=== PATIENT | female | born 1975 | race Hispanic/Latino ===

== ENCOUNTER 2016-10-13 01:21 | Emergency (ER) | payer OTHER ==
[2016-10-13] MEDS ORDERED: Sodium Chloride 0.9% 1,000 ML IV STA (01:41)
[2016-10-13 02:10] LABS: BASO # 0.1 K/uL (0.0-0.2); BASO % 0.8 % (0.0-2.0); EOS # 0.1 K/uL (0.0-0.7); EOS % 0.9 % (0.0-4.0); HEMOGLOBIN 11.7 g/dL (12.0-16.0); LYMPH # 3.1 K/uL (1.0-4.3); MEAN CELL VOLUME 83.9 fl (81.0-99.0); MEAN CORPUSCULAR HGB CONC 32.2 g/dL (33.0-37.0); MONO # 0.7 K/uL (0.0-0.8); MONO % 7.8 % (0.0-10.0); NEUT # 4.7 K/uL (1.8-7.0); NEUT % 54.5 % (50.0-75.0); NRBC % 0.1 % (0.0-0.0); RBC 4.34 Mil/uL (3.80-5.20); RED CELL DISTRIBUTION WIDTH 15.7 % (11.5-14.5); WHITE BLOOD COUNT 8.6 K/uL (4.8-10.8)
[2016-10-13 02:18] LABS: ALB/GLOB RATIO 1.4 (1.0-2.1); ALBUMIN 4.5 g/dL (3.5-5.0); ALT/SGPT 29 U/L (9-52); AST/SGOT 18 U/L (14-36); BLOOD UREA NITROGEN 20 mg/dl (7-17); CALCIUM 9.6 mg/dL (8.4-10.2); GFR AFRICAN-AMERICAN > 60; GFR NON-AFRICAN AMERICAN 54
--- NOTE | 2016-10-13 02:52 | ED PDOC ---
HPI: Abdomen Time Seen by Provider: 10/13/16 01:32 Chief Complaint (Nursing): Abdominal Pain Chief Complaint (Provider): Left flank pain History Per: Patient History/Exam Limitations: no limitations Onset/Duration Of Symptoms: Hrs (x1hour), Other (Acute and onset pain) Pain Scale Rating Of: 10 Quality Of Discomfort: Sharp, Stabbing Associated Symptoms: Nausea. denies: Vomiting Additional Complaint(s): Livier Helton is a 41 year old female with a past surgical history of a surgery ti the femur who presents to the ED with a chief complaint of left flank pain onset x1hour. Associated symptoms include nausea but denies any vomiting. Patient describes the pain as a sharp and stabbing feeling and rates the quality of it 10/10. PMD is Dr. Jimmy Rosas. Past Medical History Reviewed: Historical Data, Nursing Documentation, Vital Signs Vital Signs: Last Vital Signs Temp 98.0 F 10/13/16 01:33 Pulse 84 10/13/16 01:33 Resp 22 10/13/16 01:33 BP 131/70 10/13/16 01:33 Pulse Ox 100 10/13/16 06:28 - Medical History PMH: No Chronic Diseases - Surgical History Other surgeries: Surgery to the right femur - Family History Family History: States: Unknown Family Hx - Social History Current smoker - smoking cessation education provided: No Ex-Smoker (has not smoked in the last 12 months): No Alcohol: None Drugs: Denies - Home Medications Home Medications: Ambulatory Orders Medication Instructions Recorded Ondansetron ODT [Zofran ODT] 4 mg PO Q6 PRN #16 odt 10/13/16 Tamsulosin [Flomax] 0.4 mg PO DAILY #10 cap 10/13/16 traMADol [Ultram] 50 mg PO Q6 PRN #12 tab 10/13/16 - Allergies Allergies/Adverse Reactions: Allergies Allergy/AdvReac Type Severity Reaction Status Date / Time No Known Allergies Allergy Verified 10/13/16 01:32 Review of Systems ROS Statement: Except As Marked, All Systems Reviewed And Found Negative Gastrointestinal: Positive for: Nausea, Other (Left flank pain). Negative for: Vomiting Physical Exam - Reviewed Nursing Documentation Reviewed: Yes Vital Signs Reviewed: Yes - Physical Exam Appears: Positive for: Well, No Acute Distress, Uncomfortable Head Exam: Positive for: ATRAUMATIC, NORMAL INSPECTION, NORMOCEPHALIC Skin: Positive for: Normal Color, Warm, Dry Eye Exam: Positive for: Normal appearance, EOMI, PERRL ENT: Positive for: Normal ENT Inspection Neck: Positive for: Normal, Painless ROM, Supple Cardiovascular/Chest: Positive for: Regular Rate, Rhythm. Negative for: Murmur , Tachycardia Respiratory: Positive for: Normal Breath Sounds. Negative for: Wheezing, Respiratory Distress Gastrointestinal/Abdominal: Positive for: Normal Exam Back: Positive for: Normal Inspection Rectal: Positive for: Deferred Extremity: Positive for: Normal ROM Lymphatic: Positive for: Deferred Neurologic/Psych: Positive for: Alert, Oriented - Laboratory Results Result Diagrams: 10/13/16 02:06 10/13/16 02:06 - ECG O2 Sat by Pulse Oximetry: 100 (RA) Pulse Ox Interpretation: Normal Medical Decision Making Medical Decision Makin: Initial Impression: 41 year old female with left flank pain. Initial Plan: * Labs * CT * Torodal * Zofran * Re-eval 4:03AM CT EXAM: CT Abdomen and Pelvis Without Intravenous Contrast CLINICAL HISTORY: 41 years old, female; Pain; Abdominal pain; Flank; Left; Prior surgery; Surgery date: 6+ months; Surgery type: Femur surgery; Additional info: Renal colic TECHNIQUE: Axial computed tomography images of the abdomen and pelvis without intravenous contrast. This CT exam was performed using one or more of the following dose reduction techniques: automated exposure control, adjustment of the mA and/or kV according to patient size, and/or use of iterative reconstruction technique. Coronal and sagittal reformatted images were created and reviewed. COMPARISON: No relevant prior studies available. FINDINGS: Lower thorax: Small esophageal hiatal hernia. ABDOMEN: Liver: 1.9 x 1.4 cm low-attenuation lesion in the dome of the right hepatic lobe and smaller lesion in the tip of the lateral segment left hepatic lobe. These are incompletely characterized on this exam. Gallbladder and bile ducts: Unremarkable. No calcified stones. No ductal dilation. Pancreas: Unremarkable. No ductal dilation. Spleen: Unremarkable. No splenomegaly. Adrenals: Unremarkable. No mass. Kidneys and ureters: No stones within either kidney. There is mild hydronephrosis bilaterally. On the left this is due to an obstructing 4 mm stone in the proximal left ureter. On the right this may be secondary to uterine enlargement. Stomach and bowel: Unremarkable. No obstruction. No mucosal thickening. Appendix: Normal appendix. PELVIS: Bladder: Unremarkable. No stones. Reproductive: The uterus is enlarged which may be due to the presence of uterine fibroids. ABDOMEN and PELVIS: Intraperitoneal space: Unremarkable. No free air. No significant fluid collection. Bones/joints: Postop changes right femur. No acute fracture. No dislocation. Soft tissues: Unremarkable. Vasculature: Unremarkable. No abdominal aortic aneurysm. Lymph nodes: Unremarkable. No enlarged lymph nodes. IMPRESSION: 1. 1.9 x 1.4 cm low-attenuation lesion in the dome of the right hepatic lobe and smaller lesion in the tip of the lateral segment left hepatic lobe. These are incompletely characterized on this exam. Contrast enhanced CT with delayed imaging could be performed if indicated. 2. The uterus is enlarged which may be due to the presence of uterine fibroids. Ultrasound evaluation may be helpful if indicated Patient reports significant improvement in symptoms and is stable for discharge home Results explained at length to patient and she will f/u with Urologist Dx Ureteral Calculus Stable Scribe Attestation: Documented by Jean Pierre Mauricio acting as a scribe for Elliott Quintana MD. Provider Scribe Attestation: All medical record entries made by the Scribe were at my direction and personally dictated by me. I have reviewed the chart and agree that the record accurately reflects my personal performance of the history, physical exam, medical decision making, and the department course for this patient. I have also personally directed, reviewed, and agree with the discharge instructions and disposition. Disposition - Clinical Impression Clinical Impression: Ureteral calculus - Patient ED Disposition Is Patient to be Admitted: No Counseled Patient/Family Regarding: Studies Performed, Diagnosis, Need For Followup, Rx Given - Disposition Disposition: Routine/Home Disposition Time: 04:00 Condition: STABLE Prescriptions: Ondansetron ODT [Zofran ODT] 4 mg PO Q6 PRN #16 odt PRN Reason: Nausea/Vomiting Tamsulosin [Flomax] 0.4 mg PO DAILY #10 cap traMADol [Ultram] 50 mg PO Q6 PRN #12 tab PRN Reason: flank pain Instructions: Ureteral Stones (ED)
[2016-10-13 04:04] LABS: SQUAMOUS EPITHIAL 1 /hpf (0-5); URINE BACTERIA OCC (<OCC); URINE BILIRUBIN NEGATIVE (NEGATIVE); URINE BLOOD SMALL (NEGATIVE); URINE CLARITY CLEAR (Clear); URINE COLOR STRAW (YELLOW); URINE GLUCOSE (UA) NEG (Normal); URINE LEUKOCYTE ESTERASE NEG Leu/uL (Negative); URINE NITRATE NEGATIVE (NEGATIVE); URINE PROTEIN NEGATIVE (NEGATIVE); URINE UROBILINOGEN 0.2-1.0 mg/dL (0.2-1.0)
[2016-10-13] MEDS ORDERED: Morphine 4 MG/ML VIAL IVP ONE (04:15)
--- NOTE | 2016-10-13 10:07 | CT ---
PROCEDURE: CT Abdomen and Pelvis without Oral or IV contrast. HISTORY: renal colic COMPARISON: None available. TECHNIQUE: Contiguous axial images of the abdomen and pelvis. No oral or IV contrast administered. Coronal and Sagittal reformats generated and reviewed. Radiation dose: Total exam DLP = 548.89 mGy-cm. This CT exam was performed using one or more of the following dose reduction techniques: Automated exposure control, adjustment of the mA and/or kV according to patient size, and/or use of iterative reconstruction technique. FINDINGS: There is limited evaluation of the solid organs without the administration of IV contrast. LOWER THORAX: No visible consolidation, pleural effusion, or pneumothorax. Small hiatal hernia/ distal esophageal wall thickening. LIVER: 1.9 x 1.4 cm low-attenuation lesion, hepatic dome. Too small to characterize hypodensity, left hepatic lobe. GALLBLADDER AND BILE DUCTS: Unremarkable unenhanced appearance. PANCREAS: Unremarkable unenhanced appearance. SPLEEN: Unremarkable unenhanced appearance. ADRENALS: Unremarkable unenhanced appearance. KIDNEYS AND URETERS: Mild bilateral hydronephrosis. 4 mm proximal left ureteral calculus. BLADDER: Distended urinary bladder. REPRODUCTIVE: Enlarged lobulated uterus. APPENDIX: The appendix appears within normal limits of caliber. No secondary signs of acute appendicitis. BOWEL: The stomach is nondistended. Lack of oral contrast limits evaluation for bowel pathology. The bowel loops appear within normal limits of caliber without evidence of intestinal obstruction. Mild to moderate constipation. PERITONEUM: No significant free fluid. No definite free air. LYMPH NODES: No bulky lymphadenopathy identified. VASCULATURE: No aortic aneurysm. BONES: Partially imaged postoperative changes of the right femur. OTHER FINDINGS: None. IMPRESSION: 1.9 cm hepatic dome hypodensity. Smaller hepatic hypodensity, left hepatic lobe. These are incompletely characterized on this study. Recommend dedicated liver protocol CT for further characterization if indicated. Enlarged heterogeneous appearance of the uterus may be secondary to fibroids. Recommend pelvic ultrasound for further evaluation. Proximal 4 mm left ureteral calculus. Mild bilateral hydronephrosis. Distended urinary bladder. Mild to moderate constipation. Additional findings as above. Preliminary impression was provided by [facility].
[2016-10-13 12:26] VITALS: BP 131/70; PULSE 84; RESP 22; TEMP 98; O2SAT 100; BMI 26.6
--- NOTE | 2016-10-13 13:55 | CARD ---
APPROVED REPORT EKG Measurement Heart [id number] <Conclusion> Normal sinus rhythm Septal infarct, age undetermined Abnormal ECG
--- NOTE | 2016-10-19 09:02 | CARD ---
APPROVED REPORT EKG Measurement Heart [id number] <Conclusion> Normal sinus rhythm Normal ECG
== END 2016-10-13 05:20 | disposition home or self-care (01) ==
LOC: H.ER 01:21
DX: N20.1 Calculus of ureter (principal); D25.9 Leiomyoma of uterus, unspecified; N13.2 Hydronephrosis with renal and ureteral calculous obstruction

== ENCOUNTER 2016-10-15 08:15 | Emergency (ER) | payer OTHER ==
[2016-10-15 08:15] VITALS: BMI 26.6
[2016-10-15] MEDS ORDERED: Sodium Chloride 0.9% 1,000 ML IV STA (09:17)
--- NOTE | 2016-10-15 09:47 | ED PDOC ---
HPI: Female Pain Time Seen by Provider: 10/15/16 08:30 Chief Complaint (Nursing): Female Genitourinary Chief Complaint (Provider): Left flank pain History Per: Patient History/Exam Limitations: no limitations Onset/Duration Of Symptoms: Days (x 4 days, worsened last night) Current Symptoms Are (Timing): Better Additional Complaint(s): 41 y/o female who presents to the emergency department complaining of left- sided flank pain, ongoing for 4 days. Patient was here on 10/13/16 at 1:00am, diagnosed with a 4 mm kidney stone, given Rx for Tramadol, and went home. Pain improved Saturday, and worsened last night. One episode of vomiting at home. Currently pain is abated, and patient has a strainer but denies passing stone. She denies fever. PMD: Jimmy Rosas MD Past Medical History Reviewed: Historical Data, Nursing Documentation, Vital Signs - Medical History PMH: No Chronic Diseases Other PMH: Right femur fracture in childhood - Surgical History Surgical History: No Surg Hx - Family History Family History: States: Unknown Family Hx - Social History Current smoker - smoking cessation education provided: No Alcohol: None Drugs: Denies - Home Medications Home Medications: Ambulatory Orders Medication Instructions Recorded Ondansetron ODT [Zofran ODT] 4 mg PO Q6 PRN #16 odt 10/13/16 Tamsulosin [Flomax] 0.4 mg PO DAILY #10 cap 10/13/16 traMADol [Ultram] 50 mg PO Q6 PRN #12 tab 10/13/16 Nitrofurantoin Macrocrystals 100 mg PO BID #14 cap 10/15/16 [Macrobid] - Allergies Allergies/Adverse Reactions: Allergies Allergy/AdvReac Type Severity Reaction Status Date / Time No Known Allergies Allergy Verified 10/15/16 08:38 Review of Systems ROS Statement: Except As Marked, All Systems Reviewed And Found Negative Constitutional: Negative for: Fever Gastrointestinal: Positive for: Vomiting (1 episode at home), Abdominal Pain ( Left-sided flank pain) Physical Exam - Reviewed Nursing Documentation Reviewed: Yes Vital Signs Reviewed: Yes - Physical Exam Appears: Positive for: Non-toxic, No Acute Distress Head Exam: Positive for: ATRAUMATIC, NORMAL INSPECTION, NORMOCEPHALIC Skin: Positive for: Normal Color, Warm, Dry Eye Exam: Positive for: EOMI, Normal appearance, PERRL ENT: Positive for: Normal ENT Inspection Neck: Positive for: Normal, Painless ROM, Supple Cardiovascular/Chest: Positive for: Regular Rate, Rhythm. Negative for: Murmur Respiratory: Positive for: Normal Breath Sounds. Negative for: Accessory Muscle Use, Respiratory Distress Gastrointestinal/Abdominal: Positive for: Soft, Tenderness (left flank tenderness to palpation). Negative for: Normal Exam Back: Positive for: Normal Inspection. Negative for: Vertebral Tenderness Extremity: Positive for: Normal ROM, Capillary Refill (< 2 sec). Negative for: Pedal Edema, Deformity Neurologic/Psych: Positive for: Alert, Oriented - Laboratory Results Result Diagrams: 10/15/16 09:44 10/15/16 09:44 Medical Decision Making Medical Decision Making: Time: 09:18 Impression: Ureteral calculus Plan: --Repeat X-Ray KUB to see if stone has passed --Offered patient Toradol and Zofran, which she accepts --Rehydration, NS IV 1000 ml at 150 mls/hr --Pending labs Time: 11:09 X-Ray KUB FINDINGS: BOWEL: Normal. No obstruction. No free air. BONES: Normal. OTHER FINDINGS: The current study reveals a small approximately 2.77 mm rounded calcification in the inferior aspect left true pelvis which could represent a previously noted proximal left ureteral stone which has migrated distally however clinical correlation recommended. IMPRESSION: There is a 2.77 mm rounded calcification in the left inferior true pelvis which could represent any other small left distal ureteral calculus which has migrated from the proximal ureter seen on prior study as above Time: 11:43 --The kidney stone has migrated --Given small leukocytes in urine, I will prescribe Macrobid 100 mg PO x 1 weeks and refer to Urology (in addition to flomax which was already given) pt basically comfortable throughout ER stay Clinical Impression: Ureteral Calculus Upon provider evaluation patient is medically stable, and requires no further treatment in the ED at this time. Patient will be discharged home with Rx for Macrobid. Counseling was provided and all questions were answered regarding diagnosis and need for follow up with urologist. There is agreement to discharge plan. Return if symptoms persist or worsen. Scribe Attestation: Documented by Shayy Guy, acting as a scribe for Charles Pineda MD Provider Scribe Attestation: All medical record entries made by the Scribe were at my direction and personally dictated by me. I have reviewed the chart and agree that the record accurately reflects my personal performance of the history, physical exam, medical decision making, and the department course for this patient. I have also personally directed, reviewed, and agree with the discharge instructions and disposition. Disposition - Clinical Impression Clinical Impression: Ureteral calculus - Patient ED Disposition Is Patient to be Admitted: No Doctor Will See Patient In The: Office Counseled Patient/Family Regarding: Studies Performed, Diagnosis, Need For Followup, Rx Given - Disposition Referrals: Cody Hale MD [Medical Doctor] - Disposition: Routine/Home Disposition Time: 11:00 Condition: IMPROVED Additional Instructions: follow up with urologist in 1-2 days return to the ED with any worsening or concerning symptoms. Prescriptions: Nitrofurantoin Macrocrystals [Macrobid] 100 mg PO BID #14 cap Instructions: Renal Colic (ED)
[2016-10-15 09:52] LABS: BASO # 0.1 K/uL (0.0-0.2); BASO % 0.5 % (0.0-2.0); EOS % 0.1 % (0.0-4.0); HEMOGLOBIN 10.8 g/dL (12.0-16.0); LYMPH # 1.1 K/uL (1.0-4.3); LYMPH % 9.9 % (20.0-40.0); MEAN CELL VOLUME 83.2 fl (81.0-99.0); MEAN CORPUSCULAR HGB CONC 32.4 g/dL (33.0-37.0); MEAN PLATELET VOLUME 9.7 fl (7.2-11.7); MONO # 0.9 K/uL (0.0-0.8); MONO % 7.8 % (0.0-10.0); NEUT # 9.1 K/uL (1.8-7.0); NEUT % 81.7 % (50.0-75.0); NRBC % 0.1 % (0.0-0.0); PLATELET COUNT 201 K/uL (130-400); RED CELL DISTRIBUTION WIDTH 15.2 % (11.5-14.5); WHITE BLOOD COUNT 11.1 K/uL (4.8-10.8)
[2016-10-15 09:57] LABS: SQUAMOUS EPITHIAL 2 /hpf (0-5); URINE BILIRUBIN NEGATIVE (NEGATIVE); URINE BLOOD LARGE (NEGATIVE); URINE CLARITY SLIGHTY-CLOUDY (Clear); URINE COLOR YELLOW (YELLOW); URINE GLUCOSE (UA) NEG (Normal); URINE LEUKOCYTE ESTERASE SMALL Leu/uL (Negative); URINE NITRATE NEGATIVE (NEGATIVE); URINE PROTEIN 30 mg/dL (NEGATIVE); URINE UROBILINOGEN 0.2-1.0 mg/dL (0.2-1.0)
[2016-10-15 10:11] LABS: ALB/GLOB RATIO 1.3 (1.0-2.1); ALBUMIN 4.2 g/dL (3.5-5.0); ALT/SGPT 34 U/L (9-52); AST/SGOT 31 U/L (14-36); BLOOD UREA NITROGEN 6 mg/dl (7-17); CALCIUM 9.3 mg/dL (8.4-10.2); GFR AFRICAN-AMERICAN > 60; GFR NON-AFRICAN AMERICAN > 60
--- NOTE | 2016-10-15 11:11 | RAD ---
HISTORY: Status post kidney stone assessment - location COMPARISON: Comparison made with CT scan abdomen and pelvis 10/13/2016. FINDINGS: BOWEL: Normal. No obstruction. No free air. BONES: Normal. OTHER FINDINGS: The current study reveals a small approximately 2.77 mm rounded calcification in the inferior aspect left true pelvis which could represent a previously noted proximal left ureteral stone which has migrated distally however clinical correlation recommended. IMPRESSION: There is a 2.77 mm rounded calcification in the left inferior true pelvis which could represent any other small left distal ureteral calculus which has migrated from the proximal ureter seen on prior study as above
[2016-10-15 11:48] LABS: LYMPHOCYTE 12 % (20-50); MONOCYTE 9 % (0-10); NEUTROPHIL 79 % (42-75); TOTAL CELLS COUNTED 100
[2016-10-15 11:49] LABS: ANISOCYTOSIS SLIGHT; HYPOCHROMIC SLIGHT; PLATELET ESTIMATE NORMAL (NORMAL)
[2016-10-15 11:50] LABS: LARGE PLATELETS PRESENT; OVALOCYTES SLIGHT
== END 2016-10-15 12:02 | disposition home or self-care (01) ==
LOC: H.ER 08:15
DX: N20.2 Calculus of kidney with calculus of ureter (principal); Z87.442 Personal history of urinary calculi